=== PATIENT | male | born 1990 | race Caucasian/White ===

== ENCOUNTER → 2020-12-21 | Outpatient (CLI) | payer OTHER ==
--- NOTE | 2020-12-22 10:31 | RAD ---
EXAM: XR EXAM OF ANKLE_RIGHT 2 VIEWS 12/21/2020 1:02 PM CLINICAL INDICATION: Right ankle pain. Pain COMPARISON: None TECHNIQUE: 2 views of the right ankle FINDINGS: No acute fracture. Alignment is normal. Talar dome is intact. There is circumferential sof t tissue swelling and a small joint effusion. IMPRESSION: Soft tissue swelling and joint effusion without visualized fracture. Electronically signed by: Berta Weber MD (12/22/2020 10:29 AM) [id number]
== END ==
LOC: PMG 12:38
PROVIDERS: ATTEND Family Medicine
DX: M25.471 Effusion, right ankle (principal); M79.89 Other specified soft tissue disorders
CPT/HCPCS: 73600

== ENCOUNTER 2021-06-26 08:10 | Emergency (ER) | payer OTHER ==
[~2021-06-26] VITALS: Ht 175.3 cm; Wt 63.6 kg
[2021-06-26 08:22] VITALS: BP 149/99
--- NOTE | 2021-06-26 08:28 | PHYS DOC ---
General Adult EDM: Chief Complaint: TOE PROBLEM HPI: HPI: 31-year-old male presents with right great toe pain. The patient was helping change a tire yesterday and he went to check the tire and his great toe struck the rim instead of the rubber. He had a very difficult time sleeping last night. It is quite painful today and he is concerned about fracture. He has some bruising underneath the toenail. He denies any other injuries at this time. Review of Systems: Review of Systems: Constitutional: Denies fever or chills Eyes: Denies change in visual acuity HENT: Denies nasal congestion or sore throat Respiratory: Denies cough or shortness of breath Cardiovascular: Denies chest pain or edema GI: Denies abdominal pain, nausea, vomiting, bloody stools or diarrhea : Denies dysuria Musculoskeletal: Right great toe pain Integument: Denies rash Neurologic: Denies headache, focal weakness or sensory changes Endocrine: Denies polyuria or polydipsia Lymphatic: Denies swollen glands Psychiatric: Denies depression or anxiety Physical Exam: PE: Constitutional: Well developed, well nourished, no acute distress, non-toxic appearance. [] HENT: Normocephalic, atraumatic, bilateral external ears normal, oropharynx moist, no oral exudates, nose normal. [] Eyes: PERRLA, EOMI, conjunctiva normal, no discharge. [] Neck: Normal range of motion, no tenderness, supple, no stridor. [] Cardiovascular:Heart rate regular rhythm, no murmur [] Lungs & Thorax: Bilateral breath sounds clear to auscultation [] Abdomen: Bowel sounds normal, soft, no tenderness, no masses, no pulsatile masses. [] Skin: Warm, dry, no erythema, no rash. [] Back: No tenderness, no CVA tenderness. [] Extremities: Tenderness, swelling, ecchymosis of the right great toe. [] Neurologic: Alert and oriented X 3, normal motor function, normal sensory function, no focal deficits noted. [] Psychologic: Affect normal, judgement normal, mood normal. [] EKG: EKG: [] Radiology/Procedures: Radiology/Procedures: [] Impressions: XR FOOT_LEFT 3 VIEWS 06/26/2021 8:44 AM INDICATION: Left foot injury COMPARISON: None available. TECHNIQUE: 3 views the left foot are provided. FINDINGS/ IMPRESSION: There is a comminuted fracture of the distal joints of the first digit with intra-articular extension to the interphalangeal joint. There is no fracture involving the proximal phalanx of the first digit. Regional soft tissue swelling is identified. No subcutaneous gas or osseous erosion. No radiopaque foreign density. Electronically signed by: Cruzito Lake MD (06/26/2021 8:51 AM) [id number] DICTATED AND SIGNED BY: CRUZITO LAKE MD DATE: 06/26/2151 CC: CARLITO GOULD DO; JULITA ALFONSO ~MTH0 0 Heart Score: C/O Chest Pain: N/A Risk Factors: Risk Factors: DM, Current or recent (<one month) smoker, HTN, HLP, family history of CAD, obesity. Risk Scores: Score 0 - 3: 2.5% MACE over next 6 weeks - Discharge Home Score 4 - 6: 20.3% MACE over next 6 weeks - Admit for Clinical Observation Score 7 - 10: 72.7% MACE over next 6 weeks - Early Invasive Strategies Course & Med Decision Making: Course & Med Decision Making Pertinent Labs and Imaging studies reviewed. (See chart for details) The patient has a comminuted fracture of the distal phalanx of the left great toe. We will place him in an orthopedic shoe. I have advised that he stay off of this foot is much as possible. He will follow up with orthopedics to discuss further management. He is stable for discharge at this time. [] Dragon Disclaimer: Elmer Disclaimer: This electronic medical record was generated, in whole or in part, using a voice recognition dictation system. Departure Departure: Impression: Primary Impression: Fracture of left great toe Disposition: HOME / SELF CARE / HOMELESS Condition: STABLE Referrals: JULITA ALFONSO (PCP) Patient Instructions: Toe Fracture, [id number] Scripts Hydrocodone/Acetaminophen (Hydrocodone-Acetamin 5-325 mg) 1 Each Tablet 1 EACH PO Q4-6HRS PRN for PAIN, #10 TAB Prov: CARLITO GOULD DO 06/26/21 CARLITO GOULD DO Jun 26, 2021 08:28
--- NOTE | 2021-06-26 08:53 | RAD ---
XR FOOT_LEFT 3 VIEWS 06/26/2021 8:44 AM INDICATION: Left foot injury COMPARISON: None available. TECHNIQUE: 3 views the left foot are provided. FINDINGS/ IMPRESSION: There is a comminuted fracture of the distal joints of the first digit with intra-articular extension to the interphalangeal joint. There is no fracture involving the proximal phalanx of the first digit . Regional soft tissue swelling is identified. No subcutaneous gas or osseous erosion. No radiopaque foreign density. Electronically signed by: Dayna Lake MD (06/26/2021 8:51 AM) [id number]
[2021-06-26] MEDS ORDERED: HYDROcodone/APAP 5/325MG 1 TAB TABLET PO ONE (09:15)
[2021-06-26] MEDS ORDERED: HYDR-2759 PO (09:20)
== END 2021-06-26 09:30 | disposition home or self-care (01) ==
LOC: ER 08:10
DX: S92.422A Displaced fracture of distal phalanx of left great toe, initial encounter for closed fracture (principal); W22.8XXA Striking against or struck by other objects, initial encounter; Y93.89 Activity, other specified; Y92.89 Other specified places as the place of occurrence of the external cause; Y99.8 Other external cause status
CPT/HCPCS: 73630; 99283